=== PATIENT | female | born 1955 | race Caucasian/White ===

== ENCOUNTER → 2018-08-12 | Outpatient (CLI) | payer MEDICARE, SELFPAY ==
[2018-08-12 16:59] VITALS: BMI 41.0
--- NOTE | 2018-08-12 19:07 | RAD_ITS ---
HISTORY: LEFT KNEE PAIN EXAM: Left Knee COMPARISON: No comparisons of the left knee FINDINGS: # of images incl. paperwork: 5 A 2.3 cm osteochondroma is present on the lateral aspect of the distal femoral metaphysis. Some enthesophytes extend laterally from the lateral femoral condyle and lateral aspect of the tibial plateau. A small knee effusion is present. An osteophyte extends laterally from the lateral aspect of the patella. Some osteophytes are present on either margin of the trochlear groove at its articulation with the patella. RAD/Knee 4 or More Views IMPRESSION: 2.3 cm osteochondroma on the lateral femoral metaphysis. Minimal arthritis with small knee effusion. at 0343 Reported and signed by: Jet Douglas MD Electronically Signed: Jet Douglas MD at 3:42 EDT Tel , Service support ,
== END | disposition home or self-care (01) ==
LOC: RAD 18:50
PROVIDERS: Family Provider Nurse Practitioner; PCP Nurse Practitioner; Visit Provider Nurse Practitioner
DX: M25.562 Pain in left knee (principal); M19.90 Unspecified osteoarthritis, unspecified site
CPT/HCPCS: 73564

== ENCOUNTER → 2018-08-30 | Outpatient (CLI) | payer OTHER, SELFPAY ==
[2018-08-19 12:53] VITALS: BMI 41.0
--- NOTE | 2018-08-30 14:35 | MRI_ITS ---
STUDY: MRI LEFT KNEE REASON FOR EXAM: Female, 62 years old. Knee pain, abnormal x-ray TECHNIQUE: Standardized fat and water weighted pulse sequences were obtained in all 3 orthogonal planes. COMPARISON: Radiograph 08/12/2018 FINDINGS: There is narrowing of the medial joint space compartment. There are medial compartmental osteophytes. There is deformity with complex signal within the posterior horn medial meniscus which extends to the articular surface. There is blunting of the anterior margin. There is flattening of the anterior horn with increased signal and irregularity of the posterior aspect of the meniscus. There are medial femoral condyle and medial tibial plateau cartilage defects. There is mild subchondral marrow edema within the medial femoral condyle and medial tibial plateau. There are possible small osteochondral defects within the medial femoral condyle. Normal medial collateral ligamentous complex (MCL). Normal distal semimembranosus, gracilis and semitendinosus tendons. There is deformity of the posterior horn of the lateral meniscus with complex abnormal signal. This flattening and irregularity of the anterior horn of the lateral meniscus with abnormal signal extending to the articular surface. There may be a meniscal fragment adjacent to the posterior horn of the lateral femoral condyle and lateral tibial plateau. There is subchondral marrow edema and mild subchondral geodes within the lateral tibial plateau and likely small osteochondral defects. There is also small osteochondral defect of the lateral femoral condyle along its lateral surface. There is subcutaneous edema anterior to the knee. There is prepatellar edema with increased T2 signal. Normal proximal tibiofibular articulation. Normal lateral collateral (fibular) ligament. Normal popliteus tendon. Normal biceps femoris tendon. Normal anterior cruciate ligament (ACL). Normal posterior cruciate ligament (PCL). Normal congruent patellofemoral articulation. There are large patellar cartilage defects involving the lateral facet. There is also subchondral marrow edema with subchondral geodes. The largest measuring approximately 2 mm. Normal medial and lateral patellar retinaculum. Normal quadriceps tendon. Normal patellar tendon. Normal Hoffa's fat pad. MRI/Lower Ext Joint Only W/WO Cont IMPRESSION: Significant osteoarthrosis lateral compartment of knee with osteophyte formation, articular and osteochondral defects lateral femoral condyle and lateral tibial plateau Complex degenerative tears anterior and posterior horns lateral meniscus with a possible bucket-handle tear and/or fragmentation of the posterior meniscus Significant osteoarthrosis of the medial compartment with joint space narrowing, osteophyte formation, articular defects of the medial femoral condyle and medial tibial plateau with osteochondral defects medial femoral condyle; there is mild subchondral marrow edema within the medial femoral condyle and medial tibial plateau with increased T2 signal likely reactive. 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
[2018-08-30 15:11] LABS: CREATININE FINGERSTICK 1.1 mg/dL (0.55-1.02)
== END | disposition home or self-care (01) ==
LOC: MRI 14:34
PROVIDERS: Family Provider Nurse Practitioner; PCP Nurse Practitioner; Referring Provider Orthopaedic Surgery; Visit Provider Orthopaedic Surgery
DX: M17.12 Unilateral primary osteoarthritis, left knee (principal); D16.30 Benign neoplasm of short bones of unspecified lower limb
CPT/HCPCS: 73723; A9575

== ENCOUNTER 2018-11-12 09:44 | Observation (INO) | payer OTHER, SELFPAY ==
[2018-10-21 07:49] VITALS: BMI 41.7
[2018-10-30 11:21] VITALS: BMI 41.7
[2018-11-05 11:06] VITALS: BP 149/89; PULSE 71; RESP 18; TEMP 36.3; O2SAT 97; BMI 42.3
--- NOTE | 2018-11-05 11:22 | SDCEKG_ITS ---
Test Reason : Blood Pressure : / mmHG Vent. Rate : 069 BPM Atrial Rate : 069 BPM P-R Int : 162 ms QRS Dur : 090 ms QT Int : 382 ms P-R-T Axes : 071 032 031 degrees QTc Int : 409 ms Normal sinus rhythm Possible Left atrial enlargement Borderline ECG Confirmed by SAMARIA SINGH ([id number]), managing editor BRIANNA BURCIAGA ([id number]) on 11/13/2018 8:23:27 AM Referred By: Amandeep Richter Confirmed By:SAMARIA SINGH
[2018-11-05 11:51] LABS: Hematocrit 41.8 % (37-47); Mean Corp Hgb Conc 31.1 g/dL (32-36); Mean Corpuscular Volume 96.5 fL (81-99); Mean Platelet Vol. 8.2 fl (6.2-12.0); Platelet Count 283 K/mm3 (150-450); RBC Distribution Width CV 14.7 % (11.6-14.6); RBC Distribution Width SD 52.7 fl (35.1-43.9); Red Blood Count 4.33 M/mm3 (4.2-5.4); White Blood Count 4.7 K/mm3 (4.4-11.0)
[2018-11-05 12:02] LABS: International Normalized Ratio 0.9; Prothrombin Time (Protime)PT. 12.4 SECONDS (11.7-14.9)
[2018-11-05 12:03] LABS: Partial Thromboplast Time 28.9 Seconds (24.1-36.2)
[2018-11-05 12:20] LABS: AST(SGOT) 22 U/L (15-37); Alanine Aminotransfer ALT/SGPT 20 U/L (13-56); Albumin, Serum 3.6 g/dL (3.2-5.0); Alkaline Phosphatase 116 U/L (45-117); Bilirubin, Direct 0.08 mg/dL (0.00-0.30); Globulin 3.6 g/dL (2.2-4.2); Protein, Total 7.2 g/dL (6.4-8.2)
[2018-11-12] VITALS (13 sets, daily range): BP systolic 108–150; BP diastolic 57–78; PULSE 62–82; RESP 16–18; TEMP 36.1–37.1; O2SAT 95–100; BMI 42.3
[2018-11-12 06:05] LABS: Bedside Glucose 65 mg/dL (70-110)
[2018-11-12] MEDS: Gabapentin 600 MG Tablet PO (06:14)
[2018-11-12] MEDS: Acetaminophen 500 MG Tablet 1000 MG PO ×3 (06:15→22:08)
[2018-11-12] MEDS: Scopolamine 1mg/72hr Patch 1 PATCH TRANSDERM. (06:15)
[2018-11-12] MEDS: Magnesium Sulfate 4gm/100mL 4 GM/100 ML IV.SOLN. IV (07:07)
[2018-11-12] MEDS: Lactated Ringers 1,000 ML 100 ML IV (07:10)
--- NOTE | 2018-11-12 07:33 | PCM.HP.BLA ---
History and Physical Date of Admission: 11/12/18 Intake Vital Signs 10/30/18 Body Mass Index (BMI) 41.7 Intake Visit Reasons: LEFT KNEE Chief Complaint: left knee pain Allergies No Known Allergies Allergy (Verified 03/21/16 09:20) Medications B1/B2/Niacin/B12/Protease [B-Complex with B-12 Tablet] 1 ea PO DAILY 03/21/16 [History Confirmed 10/30/18] Bupropion HCl [Bupropion Xl] 300 mg PO DAILY 03/21/16 [History Confirmed 10/30/18] lithium carbonate 300 mg tablet 300 mg PO DAILY tab 02/06/18 [History Confirmed 10/30/18] trazodone 100 mg tablet 100 mg PO DAILY 02/06/18 [History Confirmed 10/30/18] albuterol sulfate HFA 90 mcg/actuation aerosol inhaler 2 puff INHALATION Q4H PRN #8.5 g 02/27/18 [Rx Confirmed 10/30/18] aripiprazole 10 mg tablet 10 mg PO DAILY 09/11/18 [History Confirmed 10/30/18] PFSH Medical History (Updated 08/12/18 @ 17:16 by ELENA Garcia) Bipolar 1 disorder (Acute) Colon cancer (Acute) Right shoulder injury (Acute) Surgical History (Updated 02/07/18 @ 13:40 by ELENA Garcia) H/O resection of large bowel (Acute) H/O tubal ligation (Acute) Previous back surgery (Acute) Family History (Updated 02/07/18 @ 13:38 by ELENA Garcia) Other Colon cancer Depression Diabetes Diverticulitis Family hx of alcoholism Heart disease Psychiatric care Seizures Thyroid disorder Social History (Updated 10/30/18 @ 13:40 by Amandeep Richter DO) Smoking Status: Former smoker HPI LEFT KNEE: Details: Parts of this documentation were recorded by a scribe, this documentation accurately reflects the service provided and the decisions made by Amandeep willams DO 10/30/18 [id number]. ANA ALBA is a 63 year old F here today for Iovera tx of left knee. Patient states her pain is 5/10 of her left knee right now. Denies numbness, tingling or other associated symptoms. Continues to walk with a cane. ROS Const Reports system reviewed and no additional complaints, except as docu Eyes Reports system reviewed and no additional complaints, except as docu ENT Reports system reviewed and no additional complaints, except as docu Card Reports system reviewed and no additional complaints, except as docu Resp Reports system reviewed and no additional complaints, except as docu GI Reports system reviewed and no additional complaints, except as docu Musc Reports system reviewed and no additional complaints, except as docu, Reports as per HPI Skin/Breast Reports system reviewed and no additional complaints, except as docu Neuro Yes system reviewed and no additional complaints, except as docu Psych Reports system reviewed and no additional complaints, except as docu Endo Reports system reviewed and no additional complaints, except as docu Imer/Lymph Reports system reviewed and no additional complaints, except as docu Aller/Immun Reports system reviewed and no additional complaints, except as docu Ortho Exam Left Knee Knee ROM: Yes ROM-Extension -20 to 0, No ROM-Flexion 0-140 (90) KNEE: pain with extension Left Knee Skin/Wound: No ecchymosis, No erythema, No swelling Homans Sign: No 1+: Effusion Knee ROM: Yes ROM-Extension -20 to 0, No ROM-Flexion 0-140 (120) Examination: Yes med jt line tenderness, Yes Lat jt line tenderness Stability: NML: Anterior Drawer, NML: Zahra, NML: Posterior Drawer, NML: Valgus 30, NML: Varus 30 Apprehension with Lateral Translation: No KNEE: can feel osteochondroma laterally which is slightly tender. Office Procedures Iovera Details:: No Auth required per insurance: LEFT KNEE Cryotherapy with Iovera device to anterior femoral cutaneous nerve and 2 branches of the infrapatellar saphenous nerve III nerves in total Description of procedure: Patient was brought back to the procedure room the operative extremity was identified by both patient and physician. The PIP flexion crease was measured to the midpoint of the patella and this distance was divided in 3 resulting in 10 cm location proximal to the midpoint of the patella. This line was extended medial and lateral to the extent of the edges of the patella. This was our treatment line for the anterior femoral cutaneous nerve. A second treatment line was made 5 cm medial to the inferior pole of the patella and 5 cm distally. The leg was prepped with alcohol and Betadine. 1% lidocaine was injected subcutaneously about both treatment lines total 6ccs. Using the Iovera device treatment lines were treated with 1 minute cycles. Reproduction of paresthesias was monitored in the area of nerve distribution. Once all 3 nerves were treated across the 2 treatment lines she was cleaned and a light dressing with 4 x 4 and William wrap was applied. Patient tolerated the procedure without complication. Assessment & Plan Problems 1. Primary osteoarthritis of left knee M17.12 Plan Patient tolerated procedure well. No conerns this day. Patient aware of her DOS and PAT visit. Follow up 2 weeks post op or sooner if pain, swelling, numbness or associated symptoms, or concerns develop. All questions answered. Patient in agreement of plan. Orders Orders: Ready To [facility] Today M25.569 Coding Level of Care Code Attention Siddharth Diagnoses Primary osteoarthritis of left knee M17.12 I have re-examined the patient. There are no clinical changes since date of exam
[2018-11-12] MEDS: dexAMETHasone 10 MG/ML Vial IV (07:50)
[2018-11-12] MEDS: Cefazolin 2 GM in 0.9% Normal Saline 100 ML IV ×2 (08:00→15:39)
[2018-11-12] MEDS: Bupivacaine 0.5% PF 10 ML VIAL (09:05)
[2018-11-12] MEDS: Morphine 4 MG/ML Syringe (09:05)
[2018-11-12] MEDS: Epinephrine (1 mg/ml) 1 MG/ML VIAL (09:05)
--- NOTE | 2018-11-12 09:51 | OP.PCM_ITS ---
Report of Operation Date of Procedure: 11/12/18 Description of Surgical Findings:: Preoperative diagnosis: Left knee DJD Postoperative diagnosis: Same Procedure: Left total knee arthroplasty Implant: [place] triathlon cemented left femoral component size 4, cemented tibial baseplate size 4, cemented asymmetric patella size 32, polyethylene X3 size 9 CS Anesthesia: Spinal with adductor canal block Tourniquet time: 77 minutes at 300 mmHg Complications: None Condition: Stable to PACU Estimated blood loss: 25 cc Indication for procedure: This is a 63-year-old female with long standing degenerative joint disease of the knee who has failed conservative treatment and wished to proceed with elective total knee arthroplasty. Risk benefits and alternatives were reviewed including; risk of bleeding, infection, nerve artery and tissue damage, continued pain, postoperative stiffness, venous thromboembolism, need for postoperative rehabilitation, mechanical feel to the knee, and expected postoperative course. Procedure: The patient was met in the preoperative holding area. The operative extremity was identified by both patient and physician and was marked. Patient was met by anesthesia. An adductor canal block was placed by anesthesia postoperatively the patient was brought back to the operating room on a wheeled cart and transferred to the operating table in the supine position. Anesthesia was started. A well-padded tourniquet was placed on the operative extremity. The patient was prepped and draped in the usual sterile fashion. A timeout was called to ensure the proper patient procedure and extremity were being contemplated. An Esmarch was used to exsanguinate the extremity. The tour niquet was inflated. A 10 blade scalpel was used to make a midline incision down through the skin and subcutaneous tissue. Skin retractors placed. Bovie was used to perform meticulous hemostasis. full-thickness flaps were elevated medial and lateral along the joint capsule. A deep blade scalpel was used to perform a medial parapatellar arthrotomy. The knee was brought to full extension. A Bovie was used to release the soft tissues off the most proximal aspect of the medial tibial plateau a three-quarter inch curved osteotome was also used for this process. The infrapatellar fat pad was excised. The fat pad was excised partially anterior lateral portion the anterior medial was elevated from the femur. the patella was everted. The knee was brought into flexion. An intramedullary drill was used followed by flexible intramedullary guide doris. The distal femoral cutting block was placed and set to remove 10 mm of bone and 5 degrees of valgus. The block was secured with pins and an oscillating saw was used to complete the distal femoral cut. During this, and all bony cuts retractors were used to protect the collateral ligaments. At this point a femoral sizer was used to measure the AP dimension of the femur. The sizer block was pinned parallel to the epicondylar access for external rotation. The sizing block was removed and the appropriately sized 4-in-1 cutting block was placed over the previously made pinholes. It was checked with an adis wing and the block was secured with pins. An oscillating saw was used to complete the anterior cut followed by the posterior cut followed by the posterior chamfer cut followed by the anterior chamfer cut. The block was removed as well as the fragments. A ronguer was used to remove excess osteophytes. The medial and lateral meniscus were excised as well as the ACL. At this point a PCL retractor was placed and an intramedullary drill was passed down the tibial canal followed by a solid intramedullary guide doris. The tibial cutting block was attached and set to remove 9 mm of bone from the high side. This was checked with an external alignment drop doris for slope and tilt. It was pinned into place. An oscillating saw was used to complete the tibial plateau cut and the block was removed. A large osteotome was used to elevate the fragment and a Luisa and a Bovie were used to free the fragment from the surrounding soft tissue. A rongeur was once again used to remove osteophytes a lamina supervisor doping was used to evaluate the posterior capsular structures. A three-quarter inch curved osteotome was used to remove posterior osteophytes. A spacer block was inserted in both extension and flexion to ensure adequate spacing. Trials were inserted full extension and flexion were achieved in varus and valgus stability throughout range of motion were seen, balancing techniques were performed. At this point the attention was turned towards the patella. A caliper was used to ensure sufficient bone stock to remove 10 mm of bone. A reamer was used to perform this task. Lug holes were made for the appropriate-sized patella. The patella trial was inserted and there was good patellar tracking with knee range of motion. The tibial baseplate was allowed to float into rotation and was marked on the tibial plateau with a Bovie. Lug holes were made in the femur and trials were removed. The tibial baseplate was then sized and its preparation was completed with a fin punch. The knee was thoroughly irrigated. A posterior capsular injection was performed with our standard cocktail. The knee was brought into flexion and irrigated again. The tibial baseplate was cemented. Excess cement was removed with curettes. The polyethylene component was inserted. The femoral component was cemented. The knee was brought into full extension and placed on a bump. The patellar component was cemented. At this point a Betadine rinse was placed and thoroughly irrigated after a few minutes. This was followed by an Iricept rinse which was allowed to sit for 1 minute and then thoroughly irrigated.At this point all gloves were changed. The knee was thoroughly irrigated the joint capsule was closed with #1 Ethibond. Tourniquet was let down followed by 0 Vicryl and 2-0 Vicryl in the subcutaneous tissues. followed by tanika in the skin. Dressing was applied in the form of Mepilex silver dressing web roll and an William wrap from the foot to the groin. The patient tolerated the procedure well, all counts were correct patient was brought back to the PACU in stable condition.
--- NOTE | 2018-11-12 10:57 | SUR.PHASEI ---
bs pacu 109
[2018-11-12] MEDS: Lactated Ringers 1,000 ML 125 ML IV ×2 (12:20→22:00)
[2018-11-12] MEDS: HYDROmorphone 0.5 MG/0.5 ML SYRINGE IV (13:21)
--- NOTE | 2018-11-12 15:10 | RAD_ITS ---
STUDY: X-RAY - LEFT KNEE REASON FOR EXAM: Female, 63 years old. Postop. TECHNIQUE: 2 view(s) of the knee. COMPARISON: August 12, 2018. FINDINGS: There is a total knee replacement. The prosthetic components are intact and articulate normally with each other. There is no evidence of loosening from the underlying bone. There is no evidence of osseous fracture or destructive osseous pathology. There is air and swelling in the anterior soft tissues with midline skin clips. Again seen is the osteochondroma arising from the lateral metaphysis of the femur. RAD/Knee 1 or 2 Views IMPRESSION: Status post left total knee arthroplasty. Electronically Signed: Stuart Parker DO at 20:46 EDT Tel [phone], Service support ,
[2018-11-12 16:01] LABS: Bedside Glucose 109 mg/dL (70-110)
[2018-11-12] MEDS: oxyCODONE 5 MG Tablet PO ×2 (18:06→22:08)
[2018-11-12] MEDS: Senna/Docusate Sodium 1 Tablet 2 TABLET PO (22:08)
[2018-11-12] MEDS: Lithium Carbonate 300mg Capsule 300 MG PO (22:12)
[2018-11-12] MEDS: traZODone 100 MG Tablet PO (22:12)
[2018-11-12] MEDS: ARIPiprazole 10 MG Tablet PO (22:12)
[2018-11-13] MEDS: Cefazolin 2 GM in 0.9% Normal Saline 100 ML IV (00:03)
[2018-11-13 04:25] VITALS: BP 138/60; PULSE 87; RESP 18; TEMP 36.4; O2SAT 94
[2018-11-13] MEDS: Acetaminophen 500 MG Tablet 1000 MG PO ×3 (05:00→21:52)
[2018-11-13] MEDS: oxyCODONE 5 MG Tablet PO ×4 (05:00→19:46)
[2018-11-13] MEDS: 0.9% NaCl Peripheral Flush Adult/Peds IV ×2 (05:21→19:46)
[2018-11-13 06:36] LABS: Hematocrit 33.8 % (37-47); Hemoglobin 10.6 g/dL (12.0-15.0); Mean Corp Hgb Conc 31.4 g/dL (32-36); Mean Corpuscular Hgb 30.1 pg (27.0-32.0); Mean Platelet Vol. 8.4 fl (6.2-12.0); Platelet Count 245 K/mm3 (150-450); RBC Distribution Width CV 14.3 % (11.6-14.6); RBC Distribution Width SD 50.7 fl (35.1-43.9); Red Blood Count 3.52 M/mm3 (4.2-5.4)
[2018-11-13 06:52] VITALS: O2SAT 96
[2018-11-13 07:02] LABS: Anion Gap 6 (5-15); BUN 13 mg/dL (7-18); BUN/Creat Ratio 15.8 RATIO (10-20); Calcium,Total 8.6 mg/dL (8.5-10.1); Chloride 108 mmol/L (98-107); Creatinine, Serum 0.82 mg/dL (0.55-1.02); EST Glomerular Filtration Rate 75 mL/min (>60); Est Glom Filt Rate - Afr Amer 90 mL/min (>60); Estimated Creatinine Clearance 53.68 ml/min; Glucose 109 mg/dL (74-106); Potassium 4.5 mmol/L (3.5-5.1); Sodium Level 142 mmol/L (136-145)
[2018-11-13] MEDS: APIXABAN 2.5 MG TABLET PO ×2 (10:11→21:53)
[2018-11-13] MEDS: Senna/Docusate Sodium 1 Tablet 2 TABLET PO ×2 (10:11→21:52)
[2018-11-13] MEDS: buPROPion (XL) 300 MG TABLET.XL PO (10:11)
--- NOTE | 2018-11-13 10:20 | CASEMGMT ---
SHANNAN LAGOS Face to Face with patient for initial transition planning/care coordination assessment. RN CM introduced self and role at [facility]. Patient sitting in chair, alert and oriented. Patient willing to participate in assessment and is able to answer all questions appropriately. Care providers, pharmacy, and demographics verified. Patient wishes to discharge home with HHC. SHANNAN LAGOS provided patient with list of HHC companies in-network with her insurance to review for preferences. Patient states she has no further needs or concerns at this time. CM to follow for discharge planning needs that may arise. PCP: FEDE Hauser Specialists: aleksandr Zavala Pharmacy: [facility] Insurance: [employer] Prescription Benefit: yes Living Will/HPOA: yes, daughter Jackie Ramirez LNOK: daughter Living Arrangements: patient lives with daughter in in-law suite. Patient was independent prior to surgery Transportation: daughter DME/HHC: patient state she has raised toilet, cane, walker, grab bars at home. Patient reviewing list for HHC. Disposition Plan: Patient to discharge home with HHC, family support, and follow-up plans in place. Kanika CHAVES, RN, CM
[2018-11-13 10:25] VITALS: BP 144/74; PULSE 91; RESP 16; TEMP 36.9; O2SAT 98
--- NOTE | 2018-11-13 13:14 | PCM.PN.ORT ---
Subjective: Doing okay pain controlled no fevers chills nausea vomiting shortness of breath or chest pain - Physical Exam General: Alert, Oriented x3, Cooperative, No apparent distress Extremities: - - Left knee dressing clean dry and intact compartment soft neurovascular intact Vital Signs Temp Pulse Resp BP Pulse Ox 98.4 F 91 16 144/74 H 98 11/13/18 10:25 11/13/18 10:25 11/13/18 10:25 11/13/18 10:25 11/13/18 10:25 Oxygen Flow Rate (L/min) 1 Oxygen Delivery Method Room Air Weight: 224 lb 3.362 oz Body Mass Index (BMI) 42.3 Intake and Output for Last 24 Hours 11/11/18 11/12/18 11/13/18 23:59 23:59 23:59 Intake Total 3265.00 / 3465.00 735.75 / 735.75 Output Total 1150 / 1750 600 / 600 Balance 2115.00 / 1715.00 135.75 / 135.75 Laboratory Tests Past 24 Hrs 11/13/18 11/13/18 06:20 06:20 WBC 8.0 RBC 3.52 L Hgb 10.6 L Hct 33.8 L MCV 96.0 MCH 30.1 MCHC 31.4 L RDW Std Deviation 50.7 H RDW Coeff of Tatyana 14.3 Plt Count 245 MPV 8.4 Sodium 142 Potassium 4.5 Chloride 108 H Carbon Dioxide 28.0 Anion Gap 6 BUN 13 Creatinine 0.82 Estim Creat Clear Calc 53.68 Est GFR (MDRD) Af Amer 90 Est GFR (MDRD) Non-Af 75 BUN/Creatinine Ratio 15.8 Glucose 109 H Calcium 8.6 POC Glucose 11/12/18 10:56 POC Glucose 109 Medical Necessity - Tobacco Use Smoking Status: Current some day smoker Tobacco Use: Vapor Assessment/Plan All Active Problems (Last Reviewed 08/12/18 @ 14:30 by Allie Ruth) Osteoarthritis (Acute) Left knee pain (Acute) SOB (shortness of breath) (Acute) Wheezing (Acute) Bronchitis (Acute) Left acute otitis media (Acute) Postop day #1 left total knee arthroplasty Patient does not feel she is ready to be discharged home she is having occult he with ambulation and wishes to stay until tomorrow after therapy tomorrow plans for home health care
--- NOTE | 2018-11-13 13:30 | CASEMGMT ---
Addendum entered by Kanika Kiser 11/13/18 15:35: Received call back from [facility] and they are not able to accept patient due to insurance. SHANNAN LAGOS requested [facility] forward referral to [facility] their sister company. [facility] with stated they would forward to [facility] and have them follow up with this SHANNAN LAGOS. Original Note: SHANNAN LAGOS back to review choice for [facility] with patient. Patient's preferences are [facility], [facility], and [facility] in that order. SHANNAN LAGOS sent referral to [facility] and am awaiting response. CM will continue to follow this patient and plan for a safe discharge.
[2018-11-13 16:25] VITALS: BP 153/86; PULSE 97; RESP 16; TEMP 36.7; O2SAT 98
[2018-11-13 21:42] VITALS: BP 155/85; PULSE 95; RESP 16; TEMP 36.8; O2SAT 96
[2018-11-13] MEDS: ARIPiprazole 10 MG Tablet PO (21:53)
[2018-11-13] MEDS: Lithium Carbonate 300mg Capsule 300 MG PO (21:53)
[2018-11-13] MEDS: traZODone 100 MG Tablet PO (21:53)
[2018-11-14 03:45] VITALS: BP 155/82; PULSE 95; RESP 18; TEMP 37.2; O2SAT 96
[2018-11-14] MEDS: oxyCODONE 5 MG Tablet PO ×3 (03:48→13:08)
[2018-11-14 05:48] LABS: Hematocrit 30.7 % (37-47); Hemoglobin 9.6 g/dL (12.0-15.0); Mean Corp Hgb Conc 31.3 g/dL (32-36); Mean Corpuscular Volume 95.9 fL (81-99); Mean Platelet Vol. 8.7 fl (6.2-12.0); Platelet Count 241 K/mm3 (150-450); RBC Distribution Width CV 14.7 % (11.6-14.6); RBC Distribution Width SD 52.1 fl (35.1-43.9); White Blood Count 8.1 K/mm3 (4.4-11.0)
[2018-11-14] MEDS: Acetaminophen 500 MG Tablet 1000 MG PO ×2 (06:11→13:08)
[2018-11-14 06:45] VITALS: O2SAT 92
--- NOTE | 2018-11-14 08:34 | PCM.DC.ORTHO ---
Discharge Diet: 2200 Calorie Control Diet Weight Bearing Status: Weight bearing as tolerated Call your doctor if you observe: Shortness of breath, Chest pain, Calf discomfort Additional Instructions: Ice and elevate next week while not ambulating. Encourage ambulation weightbearing as tolerated. Encourage FULL knee extension and flexion 1 time EVERY time you get up and down and MULTIPLE times per day. Begin showering postop day #3. Remove the dressing prior to shower gently wash with warm water and antibacterial soap then pat dry place ABD pad and BRITTNEY hose over top. This is to be done daily. do not submerge for 3 weeks. If not showering daily must clean incision and change dressing daily. Do not allow animals near incision keep clean. Follow anticoagulation recommendations. Call Dr. Richter with any concerns. Allergies/Adverse Reactions: Allergies No Known Allergies Allergy (Verified 11/05/18 11:03) Medications to take at Discharge B1/B2/Niacin/B12/Protease [B-Complex with B-12 Tablet] 1 ea PO DAILY 03/21/16 Bupropion HCl [Bupropion Xl] 300 mg PO DAILY 03/21/16 lithium carbonate 300 mg tablet 300 mg PO QHS tab 02/06/18 trazodone 100 mg tablet 100 mg PO QHS 02/06/18 aripiprazole 10 mg tablet 10 mg PO QHS 09/11/18 Apixaban [Eliquis] 2.5 mg PO BID #28 tab 11/14/18 Oxycodone [Oxyir] 5 - 10 mg PO Q4H PRN PRN #60 tab 11/14/18 The following prescriptions were given: Apixaban [Eliquis] 2.5 mg PO BID #28 tab Transmission Status: Received by [facility] Oxycodone [Oxyir] 5 - 10 mg PO Q4H PRN PRN #60 tab PRN Reason: Mod-Severe Pain () Transmission Status: Received by [facility] Primary Care Physician: Teetee Hauser NP-C [Primary Care Provider] - Test Results: Test results from this visit will be discussed in further detail at your follow-up appointment, if applicable. Please Follow Up With: Amandeep Richter DO - 2 weeks
--- NOTE | 2018-11-14 08:35 | DS.PCM_ITS ---
Discharge Date and Diagnosis Date of Admission: 11/12/18 Date of Discharge: 11/14/18 Hospital Course and Treatment Operations: total knee replacement Summary of Care Provided: The patient is a 63 year old F who has long history of degenerative joint disease to the knee who has failed conservative treatment and wished to undergo elective total knee arthroplasty. Patient underwent the aformentioned procedure on the admission date without any intraoperative complications. Patient did receive pre-and postoperative antibiotics which were discontinued within 23 hours postoperatively. Patient did receive spinal anesthesia as well as an adductor canal block postoperatively. pain was controlled with IV and transition to p.o. pain medication Patient will be discharged home with oxycodone and will continue Tylenol as well. Patient had minimal intraoperative blood loss and tranexamic acid was administered there was no need for postoperative blood transfusion her vital signs remained stable. Patient was started on both mechanical and chemical DVT per prophylaxis postoperatively in the form of SCDs BRITTNEY hose and Eliquis 2.5 mg twice daily for which she will continue for 2 additional weeks post hospital discharge. William removed post op day number one and thigh high brittney hose placed over top of the meplix silver dressing. This should be removed 72 hrs post operatively and showering begun daily at that time with warm water and antibacterial soap. not to submerge for 3 weeks. l change dressing daily at that point. Patient will follow-up in the office in 2 weeks. No intrahospital complications. Subjective: Pain controlled denies nausea vomiting shortness of breath chest pain diarrhea constipation - Physical Exam General: Alert, Oriented x3, No apparent distress Extremities: - - Compartment soft compressible neurovascularly intact Vital Signs Temp Pulse Resp BP Pulse Ox 98.9 F 95 18 155/82 H 92 11/14/18 03:45 11/14/18 03:45 11/14/18 03:45 11/14/18 03:45 11/14/18 06:45 Oxygen Flow Rate (L/min) 1 Oxygen Delivery Method Room Air Weight: 224 lb 3.362 oz Body Mass Index (BMI) 42.3 Intake and Output for Last 24 Hours 11/12/18 11/13/18 11/14/18 23:59 23:59 23:59 Intake Total 3265.00 / 3465.00 735.75 / 735.75 1100 / 1100 Output Total 1150 / 1750 600 / 600 1700 / 1700 Balance 2115.00 / 1715.00 135.75 / 135.75 -600 / -600 Laboratory Tests Past 24 Hrs 11/14/18 05:15 WBC 8.1 RBC 3.20 L Hgb 9.6 L Hct 30.7 L MCV 95.9 MCH 30.0 MCHC 31.3 L RDW Std Deviation 52.1 H RDW Coeff of Tatyana 14.7 H Plt Count 241 MPV 8.7 Discharge Diet: 0 Calorie Control Diet Weight Bearing Status: Weight bearing as tolerated Call your doctor if you observe: Shortness of breath, Chest pain, Calf discomfort Home Medications: Medications to take at Discharge B1/B2/Niacin/B12/Protease [B-Complex with B-12 Tablet] 1 ea PO DAILY 03/21/16 Bupropion HCl [Bupropion Xl] 300 mg PO DAILY 03/21/16 lithium carbonate 300 mg tablet 300 mg PO QHS tab 02/06/18 trazodone 100 mg tablet 100 mg PO QHS 02/06/18 aripiprazole 10 mg tablet 10 mg PO QHS 09/11/18 Apixaban [Eliquis] 2.5 mg PO BID #28 tab 11/14/18 Oxycodone [Oxyir] 5 - 10 mg PO Q4H PRN PRN #60 tab 11/14/18 Following Prescrptions Were Given to Patient: Apixaban [Eliquis] 2.5 mg PO BID #28 tab [facility]: [facility] Oxycodone [Oxyir] 5 - 10 mg PO Q4H PRN PRN #60 tab PRN Reason: Mod-Severe Pain () Transmission [facility] Primary Care Physician: Teetee Hauser NP-C [Primary Care Provider] - Please Follow Up With: Amandeep Richter DO - 2 weeks Additional Instructions: Ice and elevate next week while not ambulating. Encourage ambulation weightbearing as tolerated. Encourage FULL knee extension and flexion 1 time EVERY time you get up and down and MULTIPLE times per day. Begin showering postop day #3. Remove the dressing prior to shower gently wash with warm water and antibacterial soap then pat dry place ABD pad and BRITTNEY hose over top. This is to be done daily. do not submerge for 3 weeks. If not showering daily must clean incision and change dressing daily. Do not allow animals near incision keep clean. Follow anticoagulation recommendations. Call Dr. Richter with any concerns. Medical Necessity - Tobacco Use Smoking Status: Current some day smoker Tobacco Use: Vapor Meaningful Use Info Meaningful Use Diagnoses (Choose all that apply): None applicable
[2018-11-14 09:15] VITALS: BP 146/65; PULSE 99; RESP 16; TEMP 37; O2SAT 94
[2018-11-14] MEDS: Senna/Docusate Sodium 1 Tablet 2 TABLET PO (09:20)
[2018-11-14] MEDS: buPROPion (XL) 300 MG TABLET.XL PO (09:20)
[2018-11-14] MEDS: APIXABAN 2.5 MG TABLET PO (09:20)
--- NOTE | 2018-11-14 10:30 | CASEMGMT ---
SHANNAN LAGOS followed-up with [facility] and they are not able to accept the patient due to insurance. [facility] called and they are not able to accept patient's insurance. SHANNAN LAGOS back in to review [facility] choices with patient and would like to try [facility] next. Referral sent to [facility] and am awaiting call back regarding acceptance. CM will continue to follow this patient and plan for a safe discharge.
[2018-11-14 13:27] VITALS: BP 144/63; PULSE 106; RESP 16; TEMP 37.3; O2SAT 96
--- NOTE | 2018-11-14 13:45 | CASEMGMT ---
SHANNAN LAGOS received update from [facility] that they are able to accept the patient. Informed that patient will have a $40 copay per visit. Patient updated and voiced understanding and is agreeable to HHC with [facility].
[2018-11-14 14:05] VITALS: TEMP 36.9
== END 2018-11-14 14:20 | disposition home health service (06) ==
LOC: SDC 09:49
PROVIDERS: Anesthesiology; Admitting Provider Orthopaedic Surgery; Family Provider Nurse Practitioner; PCP Nurse Practitioner; Referring Provider Orthopaedic Surgery; Visit Provider Orthopaedic Surgery
PROC: (CPT 27447; principal; 2018-11-12 07:25)
DX: M17.12 Unilateral primary osteoarthritis, left knee (principal); Z79.899 Other long term (current) drug therapy; F31.9 Bipolar disorder, unspecified; Z85.038 Personal history of other malignant neoplasm of large intestine; F17.290 Nicotine dependence, other tobacco product, uncomplicated; G25.81 Restless legs syndrome; Z86.2 Personal history of diseases of the blood and blood-forming organs and certain disorders involving the immune mechanism
CPT/HCPCS: 27447; 64447; 36415; 73560; 80048; 80076; 82962; 85027; 85610; 85730; 87081; 93005; 96361; 96365; 96366; 96375; 97110; 97162; 97166; 97530; 97535; 99218; 99406; C1776; J7120; A4216; G0378; G0379; J3490

== ENCOUNTER → 2018-12-23 | Outpatient (CLI) | payer OTHER, SELFPAY ==
[2018-12-23 09:25] VITALS: BMI 42.3
--- NOTE | 2018-12-23 09:35 | RAD_ITS ---
STUDY: X-RAY - LEFT KNEE REASON FOR EXAM: Female, 63 years old. One month postop TECHNIQUE: 4 view(s) of the knee. COMPARISON: 11/12/2018 FINDINGS: Total knee arthroplasty with normal alignment. Stable 20 x 15 mm osteochondroma projecting from the distal lateral femoral metaphysis. Suprapatellar effusion. RAD/Knee 4 or More Views IMPRESSION: No radiographic evidence of hardware failure. Suprapatellar effusion. Stable distal femoral osteochondroma. Electronically Signed: Matt Pena MD at 17:04 EDT Tel , Service support ,
== END | disposition home or self-care (01) ==
LOC: HPRAD 09:35
PROVIDERS: Family Provider Nurse Practitioner; PCP Nurse Practitioner; Referring Provider Orthopaedic Surgery; Visit Provider Orthopaedic Surgery
DX: Z47.89 Encounter for other orthopedic aftercare (principal)
CPT/HCPCS: 73564

== ENCOUNTER → 2019-02-20 07:40 | Outpatient (CLI) | payer OTHER, SELFPAY ==
[2019-02-03 10:04] VITALS: BMI 42.3
[2019-02-20 08:13] LABS: Absolute Lymphocyte Count 1.33 X10^3/uL (0.83-4.51); Absolute Neutrophil Count 2.8 X10^3/uL (2.0-7.7); Basophil# 0.02 X10^3/uL; Basophil% 0.4 % (0-1); Eosinophil# 0.08 X10^3/uL; Eosinophils% 1.8 % (0-5); Hematocrit 42.1 % (37-47); Hemoglobin 13.1 g/dL (12.0-15.0); Lymphocyte # 1.33 X10^3/ul (4.0); Lymphocyte % 29.4 % (19-41); Mean Corp Hgb Conc 31.1 g/dL (32-36); Mean Corpuscular Hgb 29.8 pg (27.0-32.0); Mean Corpuscular Volume 95.9 fL (81-99); Mean Platelet Vol. 8.2 fl (6.2-12.0); Monocyte# 0.27 X10^3/uL; NRBC Flagged by Analyzer 0 % (0-5); Neutrophil # 2.81 X10^3/uL (2.7-7.7); Neutrophil % 62.2 % (47-70); Platelet Count 332 K/mm3 (150-450); RBC Distribution Width CV 13.6 % (11.6-14.6); RBC Distribution Width SD 48.6 fl (35.1-43.9); Red Blood Count 4.39 M/mm3 (4.2-5.4); White Blood Count 4.5 K/mm3 (4.4-11.0)
[2019-02-20 08:47] LABS: AST(SGOT) 11 U/L (15-37); Alanine Aminotransfer ALT/SGPT 17 U/L (13-56); Albumin, Serum 3.5 g/dL (3.2-5.0); Alkaline Phosphatase 115 U/L (45-117); Anion Gap 3 (5-15); BUN 11 mg/dL (7-18); Bilirubin, Direct 0.14 mg/dL (0.00-0.30); Calcium,Total 9.1 mg/dL (8.5-10.1); Chloride 109 mmol/L (98-107); Cholesterol 199 mg/dL (200); Creatinine, Serum 0.85 mg/dL (0.55-1.02); EST Glomerular Filtration Rate 72 mL/min (>60); Est Glom Filt Rate - Afr Amer 88 mL/min (>60); Globulin 3.5 g/dL (2.2-4.2); Glucose 92 mg/dL (74-106); High Density Lipoprotein 76 mg/dL; Potassium 4.2 mmol/L (3.5-5.1); Sodium Level 144 mmol/L (136-145); Triglycerides 74 mg/dL; Very Low Density Lipoprotein 15 mg/dL (5-40)
[2019-02-20 09:47] LABS: Vitamin D,25 Hydroxy 20.2 ng/mL (29.95-100.01)
== END ==
PROVIDERS: Family Provider Nurse Practitioner; PCP Nurse Practitioner
DX: Z79.899 Other long term (current) drug therapy (principal)
CPT/HCPCS: 36415; 80053; 80061; 80178; 82248; 82306; 85025

== ENCOUNTER → 2019-04-03 21:11 | Outpatient (CLI) | payer OTHER, SELFPAY ==
[2019-02-03 10:04] VITALS: BMI 42.3
[2019-04-09 11:36] LABS: HPV Reflexed? NOT INDICATED
== END ==
PROVIDERS: PCP Nurse Practitioner; Referring Provider Nurse Practitioner; Visit Provider Nurse Practitioner
DX: Z12.4 Encounter for screening for malignant neoplasm of cervix (principal)
CPT/HCPCS: 88175; G0145

== ENCOUNTER → 2019-04-21 | Outpatient (CLI) | payer MEDICAID, SELFPAY ==
[2019-04-10 14:44] VITALS: BMI 40.8
--- NOTE | 2019-04-21 13:16 | CT_ITS ---
STUDY: CT ABDOMEN AND PELVIS WITHOUT CONTRAST REASON FOR EXAM: Female, 63 years old. HX COLON CA, BLOODY STOOL, ABD PAIN RADIATION DOSAGE (If Supplied By Facility): CTDIvol = ( 14.03 ) mGy, DLP = ( 963.16 ) mGycm TECHNIQUE: Transaxial images were obtained from the dome of the diaphragm to the symphysis pubis without oral contrast, and without intravenous contrast. Sagittal and coronal images were reconstructed. Individualized dose optimization techniques were used for this CT. COMPARISON: None. FINDINGS: The visualized lung bases are unremarkable. The visualized portions of the heart are within normal limits. 5.7 mm calcification in the dome of the right lobe of liver most likely representing a calcified granuloma gallstones. Normal spleen. Normal pancreas. Normal bilateral adrenal glands. 1 cm cyst in the anterior midportion of the right kidney. 1.5 cm cyst in the lower pole of the left kidney. 1.4 cm cyst in the upper mid pole of the left kidney. Normal visualized stomach. Normal small intestine. There are multiple colonic diverticula consistent with diverticulosis. Surgical anastomosis is seen in the colorectal junction. The appendix is visualized and appears normal. Normal abdominal aorta. Normal inferior vena cava. Normal retroperitoneum. Normal urinary bladder. Normal abdominal wall. Anterior listhesis of L5 on S1. The patient is status post L4-L5 and L5-S1 laminectomy and interpedicular screw fixation. CT/Abdomen/Pelvis W IV Cont ONLY IMPRESSION: Calcified hepatic granuloma. Small bilateral renal cysts. Sigmoid diverticulosis. Electronically Signed: Tushar Post, at 14:56 EST , Service support ,
[2019-04-21 14:00] LABS: CREATININE FINGERSTICK 0.9 mg/dL (0.55-1.02); EGFR FINGERSTICK > 60.0000 mL/min (>60)
== END | disposition home or self-care (01) ==
PROVIDERS: PCP Nurse Practitioner; Visit Provider Nurse Practitioner
DX: K62.5 Hemorrhage of anus and rectum (principal); C18.9 Malignant neoplasm of colon, unspecified
CPT/HCPCS: 74177; Q9967

== ENCOUNTER 2019-04-22 13:47 | Emergency (ER) | payer OTHER, SELFPAY ==
[2019-04-10 14:44] VITALS: BMI 40.8
[2019-04-22 13:48] VITALS: BP 196/101; PULSE 72; RESP 16; TEMP 37.1; O2SAT 97; BMI 39.6
--- NOTE | 2019-04-22 14:28 | RAD_ITS ---
STUDY: X-RAY CHEST REASON FOR EXAM: Female, 63 years old. RIGHT SIDE PAIN. STARTED YESTERDAY. TECHNIQUE: PA and lateral views of the chest. COMPARISON: None. FINDINGS: The lungs are clear and expanded. There is no demonstrated pleural abnormality. Normal size heart. Normal mediastinum and ellis. Normal visualized pulmonary arteries. There is atherosclerotic tortuosity of the aortic arch and descending thoracic aorta. There are mild degenerative changes of the visualized thoracic spine. Normal visualized ribs, clavicles, and shoulders. There is no demonstrated abnormality of the visualized soft tissue structures of the upper abdomen. RAD/Chest PA and Lateral IMPRESSION: No acute abnormality is seen. Electronically Signed: Tushar Post, at 14:45 EST , Service support ,
[2019-04-22 14:34] LABS: Mucous, Urine 0 SEEN /hpf (<or=2+); Red Blood Cells-Urine 0 SEEN /hpf (0-5)
[2019-04-22 14:37] LABS: Color, Urine Yellow (Yellow); Glucose, Dipstick Normal (Normal); Ketone-Dipstick Negative (Negative); Leukocyte Esterase-Dipstick 25 /ul (Negative); Nitrite-Dipstick Negative (Negative); Occult Blood-Urine Negative /ul (Negative); Protein-Dipstick Negative (Negative); Specific Gravity, Urine 1.015 (1.002-1.030); Urine Bilirubin Dipstick Negative (Negative); Urine Clarity Cloudy (Clear); Urine Urobilinogen Normal (Normal)
[2019-04-22 14:43] LABS: Amorphous Sediment 2+; Bacteria 1+ /hpf (None Seen); Squamous Epithelial Cells - UA 0-5 SEEN /hpf (5-10); White Blood Cells 0-5 SEEN /hpf (0-5)
--- NOTE | 2019-04-22 15:14 | ED.DCSUM_ITS ---
- ER Visit Summary Date of Service: 04/22/19 Chief Complaint: Right flank/lateral rib cage pain. History of Present Illness: The patient is a 63 F history of depression. Prior back surgery. Patient states she is had right lateral flank pain since yesterday morning. No associated nausea, vomiting, diarrhea or fever. Is worse with movement. There is no shortness of breath. Pain is not pleuritic. She was seen by her primary care physician had a CAT scan ordered which showed no acute abnormality. She denies any dysuria. No fever or chills. Physical Examination: Older female no acute distress vital signs stable afebrile. Pulse ox 97% on room air no signs hypoxia. H EENT exam unremarkable. Neck nontender no lymphadenopathy. Lungs clear to auscultation bilaterally. Equal symmetrical. Heart regular rate and rhythm no murmur. Chest wall she has right lateral rib cage tenderness along the ninth and 10th rib area laterally. There is no ecchymosis or bruising. No subcu air crepitus. No signs of trauma. No abrasion or bruising. She has no history of trauma there. Abdomen is soft nontender normal bowel sounds no peritoneal signs. There is absolutely no abdominal tenderness no right upper quadrant tenderness or Castelan sign. Back nontender than the right lateral rib cage. Moving all 4 extremities. Neurovascular intact. Calves are nontender without edema or cords. Neurologically she is awake alert with no focal motor deficits. Test Results: Patient had a recent CT Abd/Pelvis in the last 1 to 2 days which is unremarkable. A normal. No signs of infection. No signs of stone. Chest x-ray AP lateral views normal cardiac silhouette. No infiltrate. No pneumothorax. No effusion. Read both by myself and radiologist. Emergency Department Course and Treatment: Repeat exam normal at 15 10 PM. Abdomen remains benign. Treatment Plan: Tylenol and/or Motrin for pain. Follow-up if not improving. Return if worse. Disposition: Discharge Impression: Right lateral rib cage pain secondary to musculoskeletal etiology This note was generated with Gini dictation software. It may contain incorrect words, spelling, and punctuation that were not noted in review of the chart prior to signing ED Disposition - Plan for ED Patient: Referrals: Teetee Hauser NP-C [Primary Care Provider] -
--- NOTE | 2019-04-22 15:18 | ED.DEP ---
ED Disposition - Plan for ED Patient: Disposition: Home or Assisted Living Referrals: Teetee Hauser NP-C [Primary Care Provider] - 1 Week if not improving Additional Instructions: Your recent CAT scan was unremarkable. Your chest x-ray today and urinalysis were normal. This appears to be due to a strain of your right rib cage. Ice to the area and support with a pillow. Tylenol and/or Motrin for pain. Follow-up with your primary care provider if not improving.
== END 2019-04-22 15:24 | disposition home or self-care (01) ==
PROVIDERS: Emergency Provider Emergency Medicine; PCP Nurse Practitioner
DX: R07.81 Pleurodynia (principal); Z72.0 Tobacco use
CPT/HCPCS: 71046; 81001; 99283

== ENCOUNTER 2019-04-28 10:48 | Day surgery (SDC) | payer OTHER, SELFPAY ==
--- NOTE | 2019-04-10 02:44 | HP_ITS ---
Intake Intake Visit Reasons: Colonoscopy/ Rectal Bleeding Chief Complaint: LEFT TOTAL KNEE Allergies No Known Allergies Allergy (Verified 11/05/18 11:03) [facility] Medical History (Updated 04/10/19 @ 10:58 by ELENA Garcia) Bipolar 1 disorder (Acute) Colon cancer (Acute) Right shoulder injury (Acute) Surgical History (Updated 04/10/19 @ 14:43 by Becka Calderón MD) H/O resection of large bowel (Acute) H/O tubal ligation (Acute) History of arthroscopy of both knees (Acute) Previous back surgery (Acute) Social History (Updated 04/10/19 @ 14:44 by Becka Caledrón MD) Smoking Status: Current some day smoker HPI HPI HPI: ANA ALBA, is a 63 F who presents to the office today for HPI HPI Surgical H&P: Yes HPI: ANA ALBA, is a 63 F who presents to the office today for bleeding per rectum. Patient's past medical history for colon cancer and underwent a laparoscopic anterior resection of the rectum and sigmoid in June 2015. Patient did not require any chemotherapy as 19 and 19 nodes were negative. Patient did undergo a repeat colonoscopy by Dr. Jacinto in September 2016 which she had at 8 mm polyp in the ascending colon removed after saline injection lift and cold snare. Pathology did show fragments of sessile serrated polyp. Patient was recommended to follow-up repeat colonoscopy in 2018. Patient states that her insurance sent someone out and she did test at home I think they were fecal occult blood test x2 which were negative. Patient states that last week Sunday or Sunday she had rectal bleeding 3 times during that day states it was like light pink in color. Patient states that no further bleeding since then. She has had bowel movements daily denies any blood denies any chronic abdominal pain nausea vomiting or reflux. Exam Const General: cooperative, comfortable, no acute distress Resp Effort & Inspection: normal respiratory effort Cardio Rate: regular rate GI Inspection: non-distended, obesity Palpation: soft, no guarding, nontender Neuro Cranial Nerves: CN's II-XI intact bilaterally Extrem General: no clubbing, cyanosis or edema Psych Affect: normal affect Assessment & Plan Problems 1. Blood per rectum K62.5 2. Adenocarcinoma of sigmoid colon C18.7 3. S/P colectomy Z90.49 2016 laparoscopic LAR at [facility] Plan Discussed with patient that due to her history of colon cancer and additional polyp after cancer resection, fecal occult blood test are not adequate screening tools for her. Stressed the importance of getting follow-up colonoscopies as scheduled. I have discussed the above with the patient. I have offered the patient colonoscopy for evaluation. I have explained the risks/benefits of the procedure and described the procedure. I have discussed the risks with the patient, including but not limited to: infection, bleeding, perforation of the GI tract requiring emergency surgery, inability to complete the procedure, injury to any internal organs, complications of anesthesia, etc. - the patient understands and agrees to proceed. I have answered all the patient's questions to the patient's satisfaction and the patient has no further questions. The patient has been given instructions for the colon cleansing preparation. One day of clears, Mira[employer] to collect split prep. Becka Calderón M.D. Pager: [phone] [facility] [address] [place] [address], [facility], [address] [place] [address] Office: [phone] Plan Detail Follow Up We will schedule colonoscopy Coding Level of Care Code Off vis,new,level 3 Diagnoses Blood per rectum K62.5 Adenocarcinoma of sigmoid colon C18.7 S/P colectomy Z90.49 04/10/19 1444 <Electronically signed by Becka Daniels am, MD> Date _ Becka Calderón MD I have re-examined the patient. There are no clinical changes since date of exam.
[2019-04-10 14:44] VITALS: BMI 40.8
[2019-04-28 11:00] VITALS: BP 143/81; PULSE 73; RESP 16; TEMP 37.1; O2SAT 96; BMI 39.1
[2019-04-28] MEDS: Lactated Ringers 1,000 ML 100 ML IV (11:15)
--- NOTE | 2019-04-28 12:00 | COLBX_PTH ---
PATIENT: ANA ALBA LOC: EN U#:[id number] AGE/SX: 63/F ROOM: RE04/28/[address]: Dr. Becka Calderón MD : 1955 BED: DIS: 04/28/2019 SPEC #: [id number] RECD: 04/28/19 12:36 STATUS: KAYLA GLADYS #: [id number] SHIN: 04/28/19 12:[address]: Becka Calderón DEPT: SURGICAL PATHOLOGY RECD BY: Jose Francisco ENTERED: 04/28/19 12:57 SP TYPE: COLON BX OTHR DR: Teetee Hauser, OBSTETRICS GYN PHYSICIAN-C Tissues: A - Ascending colon B - Rectum, NOS C - Rectum, NOS DE - Rectum, NOS Procedures: Surgery Specimen Level IV HEADER OPERATION: Colonoscopy ([facility]) PRE-OP DIAGNOSIS: Rectal bleeding, history adenocarcinoma of sigmoid colon TISSUE SUBMITTED: A - Ascending polyp biopsy, B - Rectal polyp biopsy (#1) and rectal polyp #2 (snare), rectal polyp #4 biopsy, C - Rectal polyp #3 base, D - Rectal polyp #3 (lobulated appearance) MICROSCOPIC DIAGNOSIS A. Ascending colon polyp, biopsy: Hyperplastic polyp. B. Rectal polyp #1, rectal polyp #2 and rectal polyp #4, biopsy: Fragments of hyperplastic polyp. C. Rectal polyp #3 base, biopsy: Fragments of colonic mucosa, no pathologic diagnosis. D. Rectal polyp #3, lobulated appearance: Tubular adenoma. NASREEN:rose 04/29/19 MICROSCOPIC DESCRIPTION Slides are reviewed. GROSS DESCRIPTION A - Received in fixative is one container labeled with the patient's name and designated ascending polyp biopsy. The specimen consists of two irregular fragments of light hester soft tissue that in aggregate measure 0.3 x 0.2 x 0.1 cm. The specimen is totally submitted in one cassette. B - Received in fixative is one container labeled with the patient's name and designated rectal polyp #1 biopsy, rectal polyp #2 and rectal polyp #4 biopsy. The specimen consists of multiple irregular fragments of light hester soft tissue that in aggregate measure 1 x 0.5 x 0.1 cm. The specimen is totally submitted in one cassette. C - Received in fixative is one container labeled with the patient's name and designated rectal polyp #3 base biopsy. The specimen consists of multiple irregular fragments of light hester soft tissue that in aggregate measure 0.8 x 0.2 x 0.1 cm. The specimen is totally submitted in one cassette. D - Received in fixative is one container labeled with the patient's name and designated rectal polyp #3 lobulated appearance. The specimen consists of one irregular fragment of light hester-pink polyp that measures 0.5 x 0.4 x 0.3 cm. The specimen is totally submitted in one cassette. / NASREEN:rose 04/28/19 TC: CPT: 93342 x4
[2019-04-28 12:13] VITALS: BP 112/64; BP 143/81; PULSE 73; RESP 16; TEMP 36.4; O2SAT 96
[2019-04-28 12:15] VITALS: BP 108/61; BP 143/81; PULSE 72; RESP 16; O2SAT 95
[2019-04-28 12:20] VITALS: BP 112/64; BP 143/81; PULSE 79; RESP 16; O2SAT 96
--- NOTE | 2019-04-28 12:21 | OP.COLON_ITS ---
Patient Name: Fani Ramirez Procedure Date: 04/28/2019 11:13 AM Date of : 1955 Age: 63 Procedure: Colonoscopy Indications: Rectal bleeding, Personal history of malignant neoplasm of the colon Providers: Becka Calderón MD Referring MD: Teetee Hauser NP Medicines: Monitored Anesthesia Care Patient Profile: This is a 63 year old female. Last Colonoscopy: 3 years ago. She is status post sigmoid colectomy 2016 at [facility] for colon cancer. Complications: No immediate complications. Procedure: Pre-Anesthesia Assessment: - Prior to the procedure, a History and Physical was performed, and patient medications and allergies were reviewed. The patient's tolerance of previous anesthesia was also reviewed. The risks and benefits of the procedure and the sedation options and risks were discussed with the patient. All questions were answered, and informed consent was obtained. Prior Anticoagulants: The patient has taken no previous anticoagulant or antiplatelet agents. ASA Grade Assessment: III - A patient with severe systemic disease. After reviewing the risks and benefits, the patient was deemed in satisfactory condition to undergo the procedure. After I obtained informed consent, the scope was passed under direct vision. Throughout the procedure, the patient's blood pressure, pulse, and oxygen saturations were monitored continuously. The colonoscope was introduced through the anus and advanced to the cecum, identified by the appendiceal orifice, ileocecal valve and palpation. The colonoscopy was performed without difficulty. The patient tolerated the procedure well. The quality of the bowel preparation was good. Scope In: 11:36:53 AM Scope Withdrawal Time 0 hours 26 minutes 54 seconds Scope Out: 12:07:18 PM Total Procedure Duration Time 0 hours 30 minutes 25 seconds Findings: Hemorrhoids were found on perianal exam. The digital rectal exam findings include small distal rectal polyps. Three sessile polyps were found in the rectum and ascending colon. The polyps were less than 5 mm in size. These polyps were removed with a cold biopsy forceps. Resection and retrieval were complete. A less than 5 mm polyp was found in the recto-sigmoid colon. The polyp was semi-pedunculated. The polyp was removed with a hot snare. Resection and retrieval were complete. Biopsies were taken with a cold forceps for histology. A 5 mm polyp was found in the rectum. The polyp was multi-lobulated. Polypectomy was attempted, initially using a piecemeal technique with a hot snare. Polyp resection was incomplete with this device. This intervention then required a different device and polypectomy technique. The polyp was removed with a cold biopsy forceps. Resection and retrieval were complete. Area was successfully injected with 2 mL of a 1:10,000 solution of epinephrine for hemostasis of bleeding caused by the procedure. Estimated blood loss was minimal. The exam was otherwise without abnormality. Impression: - Hemorrhoids found on perianal exam. - Small distal rectal polyps found on digital rectal exam. - Three less than 5 mm polyps in the rectum and in the ascending colon, removed with a cold biopsy forceps. Resected and retrieved. - One less than 5 mm polyp at the recto-sigmoid colon, removed with a hot snare. Resected and retrieved. Biopsied. - One 5 mm polyp in the rectum, removed with a cold biopsy forceps. Resected and retrieved. Injected. - The examination was otherwise normal. Recommendation: - Discharge patient to home. - Resume previous diet. - Continue present medications. - Await pathology results. - Repeat colonoscopy 1-3 years for surveillance based on pathology results. Procedure Code(s): --- Professional --- 84801, Colonoscopy, flexible; with removal of tumor(s), polyp(s), or other lesion(s) by snare technique 85831, 59, Colonoscopy, flexible; with biopsy, single or multiple Diagnosis Code(s): --- Professional --- K64.9, Unspecified hemorrhoids K62.1, Rectal polyp D12.2, Benign neoplasm of ascending colon D12.7, Benign neoplasm of rectosigmoid junction K62.5, Hemorrhage of anus and rectum Z85.038, Personal history of other malignant neoplasm of large intestine CPT copyright 2017 [employer]. All rights reserved. The codes documented in this report are preliminary and upon medical biller/coder review may be revised to meet current compliance requirements. MD Becka Dillon MD 04/28/2019 12:21:35 PM This report has been signed electronically. Number of Addenda: 0 Note Initiated On: 04/28/2019 11:13 AM
--- NOTE | 2019-04-28 12:22 | OP.CCLET_ITS ---
04/28/2019 Teetee Hauser NP [facility] [address] [place] [id number] Re : Colonoscopy procedure for Fani Ramirez Dear Ms. Hauser This procedure was performed on Sunday, April 28, 2019. My impressions and recommendations are as follows: Impressions : - Hemorrhoids found on perianal exam. - Small distal rectal polyps found on digital rectal exam. - Three less than 5 mm polyps in the rectum and in the ascending colon, removed with a cold biopsy forceps. Resected and retrieved. - One less than 5 mm polyp at the recto-sigmoid colon, removed with a hot snare. Resected and retrieved. Biopsied. - One 5 mm polyp in the rectum, removed with a cold biopsy forceps. Resected and retrieved. Injected. - The examination was otherwise normal. Recommendations : - Discharge patient to home. - Resume previous diet. - Continue present medications. - Await pathology results. - Repeat colonoscopy 1-3 years for surveillance based on pathology results. My findings are described in the full procedure note, which is enclosed. If I can be of further assistance, please feel free to contact me at Doctor phone number(s): , Work: . Sincerely, MD Becka Dillon MD 04/28/2019 12:21:35 PM This report has been signed electronically.
[2019-04-28 12:26] VITALS: BP 110/65; BP 143/81; PULSE 75; RESP 16; TEMP 36.1; O2SAT 95
[2019-04-28 12:47] VITALS: BP 143/81
== END 2019-04-28 12:59 | disposition home or self-care (01) ==
LOC: EN 10:49 → AC 10:58
PROVIDERS: PCP Nurse Practitioner; Referring Provider Nurse Practitioner; Visit Provider Surgery
PROC: 0DJD8ZZ Inspection of Lower Intestinal Tract, Via Natural or Artificial Opening Endoscopic (ICD-10-PCS; CPT 45378; principal; 2019-04-28 11:55)
DX: D12.8 Benign neoplasm of rectum (principal); K63.5 Polyp of colon; K64.9 Unspecified hemorrhoids; Z90.49 Acquired absence of other specified parts of digestive tract; Z85.038 Personal history of other malignant neoplasm of large intestine; F17.200 Nicotine dependence, unspecified, uncomplicated; F31.9 Bipolar disorder, unspecified; F41.9 Anxiety disorder, unspecified; Z79.899 Other long term (current) drug therapy
CPT/HCPCS: 45380; 88305; J7120; J3490

== ENCOUNTER → 2020-04-14 | Outpatient (CLI) | payer OTHER, SELFPAY ==
[2020-04-14 14:56] VITALS: BMI 39.9
[2020-04-14 22:07] LABS: ALB/GLOB Ratio 1.2 RATIO (0.9-2.4); AST(SGOT) 14 U/L (15-37); Alanine Aminotransfer ALT/SGPT 22 U/L (13-56); Albumin, Serum 3.9 g/dL (3.2-5.0); Alkaline Phosphatase 112 U/L (45-117); Anion Gap 3 (5-15); BUN 17 mg/dL (7-18); BUN/Creat Ratio 18.7 RATIO (10-20); Calcium,Total 9.5 mg/dL (8.5-10.1); Chloride 106 mmol/L (98-107); Cholesterol 217 mg/dL (200); Creatinine, Serum 0.91 mg/dL (0.55-1.02); EST Glomerular Filtration Rate 67 mL/min (>60); Est Glom Filt Rate - Afr Amer 81 mL/min (>60); Globulin 3.2 g/dL (2.2-4.2); Glucose 93 mg/dL (74-106); High Density Lipoprotein 94 mg/dL; Potassium 4.1 mmol/L (3.5-5.1); Protein, Total 7.1 g/dL (6.4-8.2); Sodium Level 141 mmol/L (136-145); Triglycerides 88 mg/dL; Very Low Density Lipoprotein 18 mg/dL (5-40)
[2020-04-14 22:16] LABS: Absolute Lymphocyte Count 1.42 X10^3/uL (0.83-4.51); Basophil# 0.02 X10^3/uL; Basophil% 0.4 % (0-1); Eosinophil# 0.07 X10^3/uL; Eosinophils% 1.5 % (0-5); Hematocrit 42.8 % (37-47); Hemoglobin 13.6 g/dL (12.0-15.0); Lymphocyte # 1.42 X10^3/ul (4.0); Lymphocyte % 29.9 % (19-41); Mean Corp Hgb Conc 31.8 g/dL (32-36); Mean Corpuscular Hgb 31.6 pg (27.0-32.0); Mean Corpuscular Volume 99.5 fL (81-99); Monocyte# 0.27 X10^3/uL; Monocyte% 5.7 % (0-10); NRBC Flagged by Analyzer 0 % (0-5); Neutrophil # 2.96 X10^3/uL (2.7-7.7); Neutrophil % 62.3 % (47-70); Platelet Count 323 K/mm3 (150-450); RBC Distribution Width CV 13.5 % (11.6-14.6); RBC Distribution Width SD 49.8 fl (35.1-43.9); White Blood Count 4.8 K/mm3 (4.4-11.0)
[2020-04-16 16:34] LABS: Vitamin D 1,25-Dihydroxy 54.5 pg/mL (19.9-79.3)
== END | disposition home or self-care (01) ==
PROVIDERS: PCP Nurse Practitioner; Referring Provider Nurse Practitioner; Visit Provider Nurse Practitioner
DX: E55.9 Vitamin D deficiency, unspecified (principal); F31.31 Bipolar disorder, current episode depressed, mild
CPT/HCPCS: 80053; 80061; 82652; 85025

== ENCOUNTER → 2020-08-23 11:36 | Outpatient (CLI) | payer OTHER, SELFPAY ==
[2020-04-14 14:56] VITALS: BMI 39.9
--- NOTE | 2020-08-23 11:25 | BI_ITS ---
MAMMOGRAPHY - BILATERAL SCREENING REASON FOR EXAM: Female, 64 years old. Routine annual screening examination. PERTINENT HISTORY: Sister with breast cancer. Chronic bilateral nipple retraction. TECHNIQUE: Digital bilateral breast jeana (3D mammographic acquisition) in the CC and MLO projections. 2-D mediolateral oblique (MLO) and craniocaudad (CC) views of both breasts were obtained. CAD: Full Field Digital Mammography with Computer Added Detection was performed. COMPARISON: Comparison is made with prior chest examination dated 04/14/2015. FINDINGS: Breast Composition: There are scattered areas of fibroglandular density. There are no dominant masses or suspicious calcifications. Retraction of both nipples. Stable benign-appearing bilateral axillary lymph nodes. No other significant abnormalities are identified. There has been no significant change since the prior study. BI/SCRN MAMM (CAD)W/JEANA BILAT IMPRESSION: Stable bilateral screening mammogram. Yearly follow-up mammogram recommended. (A) ASSESSMENT CATEGORY: BIRADS Category 2: Benign. A letter regarding these results will be sent to the patient by the facility within 30 days. Approximately 10% of breast cancers are not detected by mammography. A normal mammogram should not delay biopsy of a clinically suspicious abnormality. [id number] Electronically Signed: Tushar Post MD at 14:22 EDT , Service support ,
== END ==
PROVIDERS: PCP Nurse Practitioner; Referring Provider Nurse Practitioner; Visit Provider Nurse Practitioner
DX: Z12.31 Encounter for screening mammogram for malignant neoplasm of breast (principal)
CPT/HCPCS: 77063; 77067

== ENCOUNTER 2022-04-04 21:25 | Outpatient (CLI) | payer MEDICARE, SELFPAY ==
[2022-04-04 21:49] LABS: Absolute Lymphocyte Count 1.46 X10^3/uL (0.83-4.51); Absolute Neutrophil Count 2.7 X10^3/uL (2.0-7.7); Basophil# 0.02 X10^3/uL; Basophil% 0.4 % (0-1); Eosinophil# 0.08 X10^3/uL; Eosinophils% 1.7 % (0-5); Hematocrit 43.4 % (37-47); Hemoglobin 14.1 g/dL (12.0-15.0); Lymphocyte # 1.46 X10^3/ul (0.83-4.51); Lymphocyte % 31.7 % (19-41); Mean Corp Hgb Conc 32.5 g/dL (32-36); Mean Corpuscular Hgb 31.5 pg (27.0-32.0); Mean Corpuscular Volume 96.9 fL (81-99); Mean Platelet Vol. 8.8 fl (6.2-12.0); Monocyte# 0.34 X10^3/uL; Monocyte% 7.4 % (0-10); NRBC Flagged by Analyzer 0 % (0-5); Neutrophil # 2.69 X10^3/uL (2.7-7.7); Neutrophil % 58.6 % (47-70); Platelet Count 279 K/mm3 (150-450); RBC Distribution Width CV 13.4 % (11.6-14.6); RBC Distribution Width SD 47.8 fl (35.1-43.9); Red Blood Count 4.48 M/mm3 (4.2-5.4); White Blood Count 4.6 K/mm3 (4.4-11.0)
[2022-04-04 22:03] LABS: Lithium < 0.20 mmol/L (0.60-1.20)
[2022-04-04 22:19] LABS: ALB/GLOB Ratio 1.2 RATIO (0.9-2.4); AST(SGOT) 16 U/L (15-37); Alanine Aminotransfer ALT/SGPT 23 U/L (13-56); Albumin, Serum 3.8 g/dL (3.2-5.0); Alkaline Phosphatase 98 U/L (45-117); Anion Gap 7 (5-15); BUN 14 mg/dL (7-18); BUN/Creat Ratio 15.7 RATIO (10-20); CRP, High Sensitivity Cardiac 1.97 mg/L; Calcium,Total 9.6 mg/dL (8.5-10.1); Chloride 105 mmol/L (98-107); Cholesterol 211 mg/dL (200); Creatinine, Serum 0.89 mg/dL (0.55-1.02); EST Glomerular Filtration Rate 67 mL/min (>60); Est Glom Filt Rate - Afr Amer 82 mL/min (>60); Globulin 3.3 g/dL (2.2-4.2); Glucose 90 mg/dL (74-106); High Density Lipoprotein 94 mg/dL; Potassium 4.7 mmol/L (3.5-5.1); Protein, Total 7.1 g/dL (6.4-8.2); Sodium Level 141 mmol/L (136-145); Thyroid Stim Hormone (TSH) 1.85 uIU/mL (0.358-3.74); Triglycerides 90 mg/dL; Very Low Density Lipoprotein 18 mg/dL (5-40)
[2022-04-10 20:58] LABS: Chlamydia By Nucleic Acid AMP Negative; Gonococcus By Nucleic Acid AMP Negative; HPV Reflexed? YES, CHARGE PATIENT
== END 2022-04-04 23:59 | disposition home or self-care (01) ==
PROVIDERS: PCP Nurse Practitioner; Visit Provider Nurse Practitioner
DX: Z01.419 Encounter for gynecological examination (general) (routine) without abnormal findings (principal); F31.9 Bipolar disorder, unspecified; R10.2 Pelvic and perineal pain; E78.00 Pure hypercholesterolemia, unspecified; H66.92 Otitis media, unspecified, left ear; Z11.3 Encounter for screening for infections with a predominantly sexual mode of transmission
CPT/HCPCS: 80053; 80061; 80178; 84443; 85025; 86141; 87491; 87591; 87624; 88142

== ENCOUNTER 2022-06-12 06:24 | Day surgery (SDC) | payer MEDICARE, SELFPAY ==
[2022-06-12 06:50] VITALS: BP 131/69; PULSE 84; RESP 18; TEMP 36.2; O2SAT 94; BMI 39.7
[2022-06-12] MEDS: Lactated Ringers 1,000 ML 15 ML IV (07:00)
--- NOTE | 2022-06-12 07:30 | HP.PCM_ITS ---
HPI - General General Date of Admission: 06/12/22 HPI Narrative ANA ALBA, is a 66 F who presents for screening colonoscopy the due to history of colon cancer as well as previous polyps at last colonoscopy in 2019. Patient underwent a laparoscopic anterior resection of the rectum and sigmoid in June 2015 did not need chemotherapy at that time 11/18 nodes were negative. Repeat colonoscopy was in [address] Che and then 2019 by myself?as patient could not make a recommended repeat in 2018 as per patient her insurance sent out someone she did fecal occult test x2 which were negative. Patient denies any bleeding per rectum or chronic abdominal pain/nausea/vomiting/reflux. [facility] Medical History (Updated 06/12/22 @ 07:[address] Becka Calderón MD) Alcohol use Arthritis Back pain Bipolar disorder Cancer Depression Easy bruising Former smoker History of pain when walking Low iron Restless legs Shortness of breath on exertion Syncope Wears glasses Home Medications bupropion HCl 300 mg 24 hr tablet, extended release 300 mg PO DAILY 03/21/16 [History Last Taken 03/28/16 09:00 300 MG] trazodone 100 mg tablet 100 mg PO QHS 02/06/18 [History Last Taken Unknown] lamotrigine 100 mg tablet 150 mg PO DAILY 04/14/20 [History Last Taken Unknown] lithium carbonate 150 mg capsule 150 mg PO QHS 04/14/20 [History Last Taken Unknown] aripiprazole 10 mg tablet (Abilify) 15 mg PO QHS 04/04/22 [History Last Taken Unknown] Allergy/AdvReac Type Severity Reaction Status Date / Time No Known Allergies Allergy Verified 06/08/22 12:10 Family History (Updated 04/11/22 @ 16:17 by Mandie Carlson) Sister Breast cancer Father Colon cancer Other Depression Diabetes Diverticulitis Family hx of alcoholism Heart disease Psychiatric care Seizures Thyroid disorder Surgical History (Updated 06/12/22 @ 07:[address] Becka Calderón MD) H/O resection of large bowel H/O tubal ligation History of arthroscopy of both knees Previous back surgery S/P colectomy Social History Smoking Status: Former smoker Past Medical/Surgical History Planned Operation Planned Operative Procedure/s: CSCOPE OA S.O.S: No Previous Hospitalizations/Surgeries HX Hospitalizations: No HX of Surgeries: TUBAL LIGATION LUMBAR BACK SURGERY 2 RODS/6 SREWS RIGHT KNEE SCOPE COLECTOMY FOR COLON CANCER COLONOSCOPY 2000 HOSPITALIZED FOR STAPH INFECTION IN BACK AFTER SURGERY l tkr 2019 r tkr 2017 Any Problems With Anesthesia: No You/Your Family Experience Fever (Hyperthermia) With Anes: No Cholinesterase deficiency: No Cardiovascular Hx Chest Pain within Last 2 months: No Hx of Irregular Heartbeat and/or Afib: No Hx Heart Attack: No Hx Congestive Heart Failure: No Hx Rheumatic Fever: No Hx Hypertension: No Hx Internal Defibrillator: No Hx Pacemaker: No Hx Cardiac Catheterization: No Hx Cardiac Surgery/Stents/Etc.: No Hx Stress Test: No Hx Pain in Legs when Walking/Leg Cramps: Yes (L KNEE prn) Respiratory Chronic Cough: No HX of Shortness of Breath: Yes (sob with 2 flights of stairs) Hoarseness: No Hx Chronic Obstructive Pulmonary Disease (COPD): No Hx Asthma: No Hx Emphysema: No Hx Sleep Apnea: No CPAP: No Hx Respiratory Tract Infection/Cold (presently): No Do You Snore Loudly (louder than talking or can be heard): Yes Do You Often Feel Tired/ Fatigued/ Sleepy Dring Daytime?: No Has Anyone Observed You Stop Breathing During Sleep?: No Result (for STOP score): Negative Hx Smoking: Yes (QUIT 2-3 YR AGO) Smoking Status: Former smoker Gastrointestinal Hx Gastroesophageal Reflux: No Hx Gastrointestinal Disorders: Yes (HAD COLECTOMY FOR COLON CANCER) Hx Gastrointestinal Bleed: No Hx Ulcer: No Hx Hiatal Hernia: No Difficulty Chewing/Swallowing: No Special diet followed at home: No Hx Unplanned Weight Loss of 20#: No HX Unplanned Weight Gain of 20#: No Neurological Hx Seizures: No HX Syncope/Blackout Spells/Unconsciousness: No Hx Transient Ischemic Attacks (TIA): No Hx Multiple Sclerosis: No Hx Parkinson's Disease: No Hx Head/Neck Injury: No Hx Headaches: Yes (occ) Hx Back Injury/Pain: Yes (LUMBAR BACK SURGERY 2 RODS AND 6 SREWS) Recent Onset of Speech Difficulty: No Restless Legs: Yes Does patient have nerve stimulator: No Blood Disorder Hx Leukemia: No Bleeding Tendencies: Yes (BRUISES EASILY) Hx Deep Vein Thrombosis: No Hx High Cholesterol: Yes (IN THE PAST/RESOLVED AT THIS TIME) Blood Transmitted Disease: No Hx Hepatitis: No Hx Cirrhosis: No Hx Anemia: Yes (in the past) Hx Blood Disorders: No Reproduction : No Is Patient Lactating: No Hx Hysterectomy: No Hx Tubal Ligation: Yes Are You Post Menopause: No Genitourinary Hx Renal Disease: No Musculoskeletal Hx Arthritis: Yes Hx Rheumatoid Arthritis: No Hx Gout: No Recent Onset of an Orthopedic Problem: No Endocrine Hx Diabetes: No Thyroid Disease: No Hx Steroid Therapy: No Psycho/Social Hx Substance Use: No Hx Alcohol Use: No Hx Anxiety: Yes (ON MED) Hx Depression: Yes (ON MED) Mental Illness: No Hx Dementia: No Miscellaneous Hx Cancer: Yes (COLON,basal cell) Recent Exposure to Contagious Disease: No Hx of C-Diff: No Any Loose Teeth: No Allergies No Known Allergies Allergy (Verified 06/08/22 12:10) Discharge Is Pt Admitted From a Skilled Nursing, or a [facility]: No After D/C, Where Do you Plan to Go: Return Home From the [facility] History Number of Risk Factors: 6 Vital Signs Vital Signs Vital Signs: 06/12/22 06:50 06/12/22 06:50 Temperature 97.2 F L Temperature Source Temporal Pulse Rate 84 Respiratory Rate 18 Respiratory Pattern Normal Blood Pressure 131/69 H Blood Pressure Mean 89 Blood Pressure Source Monitor Blood Pressure Position Semi-Fowlers Blood Pressure Location Left Arm Pulse Ox 94 Oxygen Delivery Method Room Air Weight Weight: 210 lb 8.663 oz Body Mass Index (BMI) 39.7 Physical Exam Const alert, oriented x3 and no apparent distress HEENT normocephalic and head/scalp atraumatic Resp normal respiratory effort Cardio regular rate GI soft to palpation and non-tender; Negative for non-distended Palpation: Negative for guarding Extremity no clubbing, cyanosis or edema Neuro CN's II-XII intact bilaterally Psych mental status grossly normal Assessment & Plan Assessment/Plan (1) Neoplasm of colon, malignant: (2) S/P colectomy: (3) Hx of colonic polyps: Surgery Risks - Colonoscopy Risks Include but are not Limited To: Risks include but are not limited to: Bleeding, perforation requiring further surgery, inability to complete colonoscopy requiring barium enema.
[2022-06-12 07:55] VITALS: BP 101/62; BP 131/69; PULSE 81; RESP 14; TEMP 36.2; O2SAT 94
[2022-06-12 08:00] VITALS: BP 108/58; BP 131/69; PULSE 80; RESP 16; O2SAT 92
[2022-06-12 08:05] VITALS: BP 111/70; BP 131/69; PULSE 81; RESP 16; O2SAT 94
--- NOTE | 2022-06-12 08:05 | OP.COLON_ITS ---
Patient Name: Fani Ramirez Procedure Date: 06/12/2022 7:18 AM Date of : 1955 Age: 66 Procedure: Colonoscopy Indications: High risk colon cancer surveillance: Personal history of colonic polyps, High risk colon cancer surveillance: Personal history of colon cancer Providers: Becka Calderón MD Medicines: Monitored Anesthesia Care Patient Profile: This is a 66 year old female. Last Colonoscopy: 3 years ago. Complications: No immediate complications. Procedure: Pre-Anesthesia Assessment: - Prior to the procedure, a History and Physical was performed, and patient medications and allergies were reviewed. The patient's tolerance of previous anesthesia was also reviewed. The risks and benefits of the procedure and the sedation options and risks were discussed with the patient. All questions were answered, and informed consent was obtained. Prior Anticoagulants: The patient has taken no previous anticoagulant or antiplatelet agents. ASA Grade Assessment: Per anesthesia. After reviewing the risks and benefits, the patient was deemed in satisfactory condition to undergo the procedure. After I obtained informed consent, the scope was passed under direct vision. Throughout the procedure, the patient's blood pressure, pulse, and oxygen saturations were monitored continuously. The colonoscope was introduced through the anus and advanced to the cecum, identified by the appendiceal orifice, ileocecal valve and palpation. The colonoscopy was performed without difficulty. The patient tolerated the procedure well. The quality of the bowel preparation was good. Scope In: 7:40:53 AM Scope Withdrawal Time 0 hours 6 minutes 44 seconds Scope Out: 7:50:50 AM Total Procedure Duration Time 0 hours 9 minutes 57 seconds Findings: The perianal and digital rectal examinations were normal. The entire examined colon appeared normal on direct and retroflexion views. Previous colonic anastomosis widely patent. Impression: - The entire examined colon is normal on direct and retroflexion views. - No specimens collected. Recommendation: - Discharge patient to home. - Resume previous diet. - Continue present medications. - Repeat colonoscopy in 3 - 5 years for surveillance. Procedure Code(s): --- Professional --- G0105, PT, Colorectal cancer screening; colonoscopy on individual at high risk Diagnosis Code(s): --- Professional --- Z86.010, Personal history of colonic polyps Z85.038, Personal history of other malignant neoplasm of large intestine CPT copyright 2017 [employer]. All rights reserved. The codes documented in this report are preliminary and upon acct exec review may be revised to meet current compliance requirements. MD Becka Dillon MD 06/12/2022 8:04:54 AM This report has been signed electronically. Number of Addenda: 0 Note Initiated On: 06/12/2022 7:18 AM
--- NOTE | 2022-06-12 08:06 | OP.CCLET_ITS ---
06/12/2022 Teetee Hauser NP [facility] [address] [place] [id number] Re : Colonoscopy procedure for Fani Ramirez Dear Ms. Hauser This procedure was performed on Sunday, June 12, 2022. My impressions and recommendations are as follows: Impressions : - The entire examined colon is normal on direct and retroflexion views. - No specimens collected. Recommendations : - Discharge patient to home. - Resume previous diet. - Continue present medications. - Repeat colonoscopy in 3 - 5 years for surveillance. My findings are described in the full procedure note, which is enclosed. If I can be of further assistance, please feel free to contact me at Doctor phone number(s): , Work: . Sincerely, MD Becka Dillon MD 06/12/2022 8:04:54 AM This report has been signed electronically.
[2022-06-12 08:10] VITALS: BP 118/64; BP 131/69; PULSE 74; RESP 16; TEMP 36.7; O2SAT 97
[2022-06-12 08:28] VITALS: BP 131/69
== END 2022-06-12 08:29 | disposition home or self-care (01) ==
LOC: EN 06:25 → AC 06:27
PROVIDERS: PCP Nurse Practitioner; Referring Provider Nurse Practitioner; Visit Provider Surgery
PROC: 0DJD8ZZ Inspection of Lower Intestinal Tract, Via Natural or Artificial Opening Endoscopic (ICD-10-PCS; CPT 45378; principal; 2022-06-12 07:25)
DX: Z12.11 Encounter for screening for malignant neoplasm of colon (principal); Z87.891 Personal history of nicotine dependence; Z86.010 Personal history of colon polyps; Z90.49 Acquired absence of other specified parts of digestive tract; Z85.038 Personal history of other malignant neoplasm of large intestine; E78.00 Pure hypercholesterolemia, unspecified
CPT/HCPCS: G0105; J7120; J2405

== ENCOUNTER → 2024-02-20 | Outpatient (CLI) | payer MEDICARE, SELFPAY ==
[2024-02-20 21:26] LABS: Absolute Neutrophil Count 3.1 X10^3/uL (2.0-7.7); Basophil# 0.03 X10^3/uL; Basophil% 0.6 % (0-1); Eosinophil# 0.06 X10^3/uL; Eosinophils% 1.2 % (0-5); Hematocrit 41.3 % (37-47); Hemoglobin 13.6 g/dL (12.0-15.0); Lymphocyte % 26.6 % (19-41); Mean Corp Hgb Conc 32.9 g/dL (32-36); Mean Corpuscular Hgb 31.8 pg (27.0-32.0); Mean Corpuscular Volume 96.5 fL (81-99); Mean Platelet Vol. 8.6 fl (6.2-12.0); Monocyte# 0.37 X10^3/uL; Monocyte% 7.6 % (0-10); NRBC Flagged by Analyzer 0 % (0-5); Neutrophil # 3.11 X10^3/uL (2.7-7.7); Neutrophil % 63.8 % (47-70); Platelet Count 296 K/mm3 (150-450); RBC Distribution Width CV 12.9 % (11.6-14.6); RBC Distribution Width SD 46.3 fl (35.1-43.9); Red Blood Count 4.28 M/mm3 (4.2-5.4); White Blood Count 4.9 K/mm3 (4.4-11.0)
[2024-02-20 21:49] LABS: ALB/GLOB Ratio 1.2 RATIO (0.9-2.4); AST(SGOT) 21 U/L (15-37); Alanine Aminotransfer ALT/SGPT 25 U/L (13-56); Albumin, Serum 3.7 g/dL (3.2-5.0); Alkaline Phosphatase 103 U/L (45-117); Anion Gap 5 (5-15); BUN 17 mg/dL (7-18); BUN/Creat Ratio 19.1 RATIO (10-20); Calcium,Total 9.4 mg/dL (8.5-10.1); Chloride 108 mmol/L (98-107); Cholesterol 204 mg/dL (200); Creatinine, Serum 0.89 mg/dL (0.55-1.02); EST Glomerular Filtration Rate 67 mL/min (>60); Est Glom Filt Rate - Afr Amer 81 mL/min (>60); Globulin 3.1 g/dL (2.2-4.2); Glucose 111 mg/dL (74-106); High Density Lipoprotein 98 mg/dL; Potassium 4.2 mmol/L (3.5-5.1); Protein, Total 6.8 g/dL (6.4-8.2); Sodium Level 141 mmol/L (136-145); Triglycerides 69 mg/dL; Very Low Density Lipoprotein 14 mg/dL (5-40)
== END | disposition home or self-care (01) ==
PROVIDERS: PCP Nurse Practitioner; Referring Provider Nurse Practitioner; Visit Provider Nurse Practitioner
DX: I10 Essential (primary) hypertension (principal); F31.31 Bipolar disorder, current episode depressed, mild; E78.00 Pure hypercholesterolemia, unspecified
CPT/HCPCS: 80053; 80061; 84443; 85025

== ENCOUNTER → 2024-05-03 | Outpatient (CLI) | payer MEDICARE, SELFPAY ==
--- NOTE | 2024-05-03 08:54 | MRI_ITS ---
PROCEDURE: MRI lumbar spine without IV contrast REASON FOR EXAM: Pain, radiculopathy, prior lumbar fusion TECHNIQUE: Multisequence multiplanar MR images of the lumbar spine were obtained without the administration of intravenous contrast COMPARISON: 04/17/2024 radiographs FINDINGS: Postsurgical change from posterior fusion/decompression from L4 through S1. Unchanged grade 1 anterolisthesis of L5-S1. No significant scoliosis. Vertebral body heights are maintained. Multilevel degenerative degenerative endplate changes. No focal bone marrow edema. Large vertebral body hemangioma at T11. Conus medullaris is intact and terminates at L1. Moderate paraspinal muscle atrophy. Cholelithiasis. Hyperintense T2 lesion in the left kidney measuring 3 cm. T12-L1: Posterior disc bulge with superimposed left central/subarticular extrusion demonstrating 13 mm of caudal migration. Mild bilateral facet arthrosis. No significant spinal stenosis, however there is narrowing of the left lateral recess secondary to the disc extrusion. Mild left foraminal narrowing. L1-2: Left central/foraminal disc protrusion. Mild bilateral facet arthrosis. No significant spinal stenosis or foraminal narrowing. L2-3: Small posterior disc osteophyte complex. Mild bilateral facet arthrosis and ligamentum flavum hypertrophy. Mild spinal stenosis. Mild/moderate bilateral foraminal narrowing. L3-4: Posterior disc bulge. Moderate bilateral facet arthrosis and ligamentum flavum hypertrophy. Severe spinal stenosis. Mild/moderate bilateral foraminal narrowing. L4-5: No focal disc abnormality, spinal stenosis or foraminal narrowing. Mild bilateral facet arthropathy. L5-S1: Grade 1 anterolisthesis. No focal disc abnormality, spinal stenosis or significant foraminal narrowing within the limits of susceptibility artifact from posterior MRI/Spine Lumbar (Routine) IMPRESSION: 1. Acquired severe spinal stenosis at L3-4. 2. Acquired mild spinal stenosis at L2-3. 3. Large left central/subarticular caudal disc extrusion at T12-L1 without sign ificant spinal stenosis, however there is narrowing of the left lateral recess at this level. 4. Acquired multilevel mild/moderate bilateral foraminal narrowing as above. 5. Posterior fusion/decompression from L4 through S1. Unchanged grade 1 elvira listhesis at L5-S1. 6. Hyperintense T2 lesion within the left kidney as above which may represent a cyst. Recommend confirmation with ultrasound. Reading [facility]
== END | disposition home or self-care (01) ==
PROVIDERS: PCP Nurse Practitioner; Referring Provider Family Medicine; Visit Provider Family Medicine
DX: M54.16 Radiculopathy, lumbar region (principal); M51.369 Other intervertebral disc degeneration, lumbar region without mention of lumbar back pain or lower extremity pain
CPT/HCPCS: 72148

== ENCOUNTER → 2024-06-10 | Outpatient (CLI) | payer MEDICARE, SELFPAY ==
--- NOTE | 2024-06-10 11:51 | US_ITS ---
PROCEDURE: KIDNEY AND BLADDER (USKI), 06/10/2024 REASON FOR EXAM: L KIDNEY CYST TECHNIQUE: Grayscale and color/spectral doppler ultrasound of the kidneys and bladder was performed. COMPARISON: 04/21/2019 ; note that images only are available for review, the report is not available at the time of the dictation. FINDINGS: Right kidney: 9.9 cm in length. Echogenic nonshadowing possible nonobstructing intrarenal calculus versus prominent renal sinus fat, 4 x 4 x 3 mm. Tiny probable cyst in the interpolar region, 10 x 8 x 9 mm. No hydronephrosis. Left kidney: 10.1 cm in length. Cysts up to 3.5 x 3.3 x 3.1 cm inferiorly. Echogenic nonshadowing possible nonobstructing intrarenal calculi versus prominent renal sinus fat, up to 5 x 6 x 2 mm. No hydronephrosis. Bladder: Unremarkable. Estimated volume 603 mL. Other: None. US/Kidney and Bladder IMPRESSION: 1. Bilateral renal cysts up to 3.5 cm on the LEFT. 2. Additional description as above. Reading Location: [id number]
== END | disposition home or self-care (01) ==
PROVIDERS: PCP Nurse Practitioner; Referring Provider Nurse Practitioner; Visit Provider Nurse Practitioner
DX: N28.1 Cyst of kidney, acquired (principal)
CPT/HCPCS: 76770

== ENCOUNTER → 2024-06-19 | Outpatient (CLI) | payer MEDICARE, SELFPAY ==
--- NOTE | 2024-06-19 10:50 | RAD_ITS ---
PROCEDURE: Pelvis and right hip radiographs, three views 06/19/2024 REASON FOR EXAM: PAIN TECHNIQUE: Three views of the pelvis and right hip were obtained. COMPARISON: CT abdomen/pelvis 04/21/2019 FINDINGS: Three views of the pelvis and right hip were obtained. Bones are mildly osteopenic. Grossly intact surgical hardware of the lower lumbar spine. SI joints are intact. No displaced pelvic fracture. Mild degenerative changes in the hip joints. No acute fracture or dislocation of the right hip. RAD/HIP, UNI W/ Pelvis 2-3 Views IMPRESSION: Mild osteopenia. No acute bony abnormality of the pelvis/right hip. Mild degenerative changes in the hip joints. Reading Location: [facility]
== END | disposition home or self-care (01) ==
LOC: RAD 10:49
PROVIDERS: PCP Nurse Practitioner; Referring Provider Anesthesiology Pain Medicine; Visit Provider Anesthesiology Pain Medicine
DX: M25.551 Pain in right hip (principal)
CPT/HCPCS: 73502

== ENCOUNTER → 2024-08-14 | Outpatient (CLI) | payer MEDICARE, SELFPAY ==
--- NOTE | 2024-08-14 10:28 | MRI_ITS ---
PROCEDURE: LOWER EXT JOINT ONLY (ROUTINE) 08/14/2024 REASON FOR EXAM: RT HIP PAIN,CONCERN FOR LABRAL TEAR,QUAD INJURY TECHNIQUE: MRI of the pelvis and right hip. Multiplanar and multisequence images were obtained without IV contrast administration. COMPARISON: COMPARISON : 06/19/2024 FINDINGS: Negative for fracture, marrow replacement or bone marrow contusion about the right hip. Mild avascular necrosis of the left femoral head without subchondral collapse. No sizeable hip joint effusion. Tear of the anterosuperior right hip labrum. No sizeable paralabral cysts. Moderate adjacent chondral thinning and fibrillation along the anterosuperior acetabulum and femoral head. Normal femoral head neck morphology. Mild gluteus minimus and iliopsoas tendinopathy without tear. Common hamstring and rectus femoris tendons are intact. Trace fluid in the trochanteric bursa. Musculature is symmetric and within normal limits. MRI/Lower Ext Joint Only (Routine) IMPRESSION: 1. Tear of the anterosuperior right hip labrum with adjacent chondrosis. 2. Mild right gluteus minimus and iliopsoas tendinopathy. 3. 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 Reading Location: [facility]
== END | disposition home or self-care (01) ==
LOC: MRI 10:06
PROVIDERS: PCP Nurse Practitioner; Referring Provider Anesthesiology; Visit Provider Anesthesiology
DX: M25.551 Pain in right hip (principal)
CPT/HCPCS: 73721